=== PATIENT | female | born 1955 | race Caucasian/White ===

== ENCOUNTER 2017-04-02 13:57 | Emergency (ER) | payer SELFPAY ==
[2017-04-02 14:22] LABS: BASOPHILS % (AUTO) 0.5 %; EOSINOPHILS # (AUTO) 0.1 10^3/uL (0.0-0.7); EOSINOPHILS % (AUTO) 1.2 %; HCT - HEMATOCRIT 43.8 % (37.0-47.0); HGB - HEMOGLOBIN 14.9 g/dL (12.0-16.0); LYMPHOCYTES # (AUTO) 1.6 10^3/uL (1.5-3.5); LYMPHOCYTES % (AUTO) 20.7 %; MEAN CORPUSCULAR HEMOGLOBIN 31.4 pg (27.0-31.0); MEAN CORPUSCULAR HGB CONC 34.1 g/dL (32.0-36.0); MEAN CORPUSCULAR VOLUME 92.2 fL (81.0-99.0); MEAN PLATELET VOLUME 8.3 fL (7.9-10.8); MONOCYTES # (AUTO) 0.5 10^3/uL (0.0-1.0); MONOCYTES % (AUTO) 6.5 %; NEUTROPHILS # (AUTO) 5.6 10^3/uL (1.5-6.6); NEUTROPHILS % (AUTO) 71.1 %; RED BLOOD COUNT 4.75 10^6/uL (4.20-5.40); RED CELL DISTRIBUTION WIDTH 13.6 % (12.0-15.0); UNCORRECTED WHITE BLOOD COUNT 7.9 x10^3/uL; WHITE BLOOD COUNT 7.9 x10^3/uL (4.8-10.8)
[2017-04-02 14:36] LABS: ALBUMIN/GLOBULIN RATIO 1.3 (1.0-2.2); BILIRUBIN,TOTAL 1.8 mg/dL (0.2-1.0); CALCIUM 9.4 mg/dL (8.5-10.3); CREATININE 0.7 mg/dL (0.4-1.0); POTASSIUM 3.6 mmol/L (3.5-5.0); TOTAL PROTEIN 7.7 g/dL (6.7-8.2)
--- NOTE | 2017-04-02 15:02 | CT Preliminary Report ---
Exam: CT Head W/O IMPRESSION: Generalized age-related cortical atrophic changes without evidence of acute intracranial abnormality. [facility] SITE ID: [id number]
--- NOTE | 2017-04-02 15:05 | CT Report ---
EXAM: CT HEAD EXAM DATE: 04/02/2017 02:37 PM. CLINICAL HISTORY: Headache, foggy . COMPARISON: None. TECHNIQUE: Multiaxial CT images were obtained from the foramen magnum to the vertex. IV contrast: Non e. Reformats: Coronal. In accordance with CT protocol optimization, one or more of the following dose reduction techniques w ere utilized for this exam: automated exposure control, adjustment of mA and/or KV based on patient s ize, or use of iterative reconstructive technique. FINDINGS: Parenchyma: No intraparenchymal hemorrhage. No evidence of mass, midline shift, or CT findings of acu te infarction. Puentes-white differentiation is distinct. Extraaxial Spaces: Normal for age. No subdural or epidural collections. Ventricles: The ventricles and cortical sulci are enlarged, consistent with age-related tissue loss. Sinuses: Imaged paranasal sinuses, orbits, and mastoids show no significant abnormality. Bones: Unremarkable. Other: Diffuse chronic microangiopathic white matter changes, notably in the basal ganglia and internet application developer al capsules, left more than right.. IMPRESSION: Generalized age-related cortical atrophic changes without evidence of acute intracranial abnormality. [facility] Referring Provider Line: [phone] SITE ID: [id number]
--- NOTE | 2017-04-02 15:12 | ED Physician Documentation ---
PD HPI ALTERED MENTAL STATUS - Stated complaint Stated Complaint: STROKE LIKE SYMPTOMS - Chief complaint Chief Complaint: Neuro - History obtained from History obtained from: Patient, Family, EMS - History of Present Illness Timing - onset: Today Timing - duration: Hours (2) Timing - details: Other (states woke up feeling foggy) Associated symptoms: No: Fever, Headache, Stiff neck, Dyspnea, Cough, NVD, Urinary sx, General weakness, Focal weakness, Seizure activity, Syncope Contributing factors: No: Anticoagulated, Diabetic, Cancer, COPD, New medication , Recent med change, Recent illness, Recent injury, Intoxicated, Substance abuse , Known psych illness, Known dementia Basline status: Alert and oriented X 3 Treatment RISK DEVELOPER: Other (none) - Additional information Additional information: Patient states he has had 2 strokes in the past. The first she had slurred speech and numbness to the right side of the body. The second she is sounds like her right eye would not cross midline, states no cause found, but they thought may have been a stroke. Symptoms lasted for about a month. Does not currently have a doctor. Is not on any medications. Just moved here Review of Systems Ten Systems: 10 systems reviewed and negative Constitutional: denies: Fever, Chills Ears: denies: Ear pain Nose: denies: Rhinorrhea / runny nose, Congestion Throat: denies: Sore throat Respiratory: denies: Cough GI: denies: Abdominal Pain, Nausea, Vomiting, Diarrhea Skin: denies: Rash Musculoskeletal: denies: Neck pain, Back pain Neurologic: reports: Confused (states felt foggy this am). denies: Focal weakness, Numbness, Headache, LOC PD PAST MEDICAL HISTORY - Past Medical History Cardiovascular: Hypertension Respiratory: None Neuro: TIA, Seizure disorder Endocrine/Autoimmune: None GI: None ASSOCIATION EXECUTIVE: None : None Psych: None Musculoskeletal: None Derm: None - Past Surgical History General: Appendectomy /ASSOCIATION EXECUTIVE: section - Present Medications Home Medications: Ambulatory Orders Medication Instructions Recorded Confirmed Aspirin EC [Ecotrin] 325 mg PO DAILY #30 tablet 04/02/17 Cephalexin [Keflex] 500 mg PO Q6H #28 capsule 04/02/17 Metoprolol Tartrate 12.5 mg PO BID #30 tablet 04/02/17 - Allergies Allergies/Adverse Reactions: Allergies Allergy/AdvReac Type Severity Reaction Status Date / Time No Known Drug Allergies Allergy Verified 04/02/17 14:12 - Social History Does the pt smoke?: No Smoking Status: Never smoker ETOH Use: Wine Does the pt have substance abuse?: No PD ED PE NORMAL - Vitals Vital signs reviewed: Yes - General General: Alert and oriented X 3, No acute distress, Well developed/nourished - HEENT HEENT: PERRL, EOMI, Moist mucous membranes - Neck Neck: Supple, no meningeal sign - Cardiac Cardiac: RRR - Respiratory Respiratory: No respiratory distress, Clear bilaterally - Abdomen Abdomen: Soft, Non tender, Non distended - Derm Derm: Warm and dry - Extremities Extremities: No deformity - Neuro Neuro: Alert and oriented X 3, wine merchant 2-12 intact, No motor deficit, No sensory deficit, Normal speech, Other (NIHSS 0@1402) - Psych Psych: Normal mood, Normal affect Results - Vitals Vitals: Vital Signs - 24 hr 04/02/17 04/02/17 14:04 15:57 Temperature 37.5 C Heart Rate 85 74 Respiratory 16 18 Rate Blood Pressure 206/93 H 160/83 H O2 Saturation 99 100 Oxygen O2 Source Room air - EKG (time done) 1511 Rate: Rate (enter#) (72) Rhythm: NSR [place]: Normal Intervals: Normal NE QRS: Normal Ischemia: Normal ST segments - Labs Labs: Laboratory Tests 04/02/17 04/02/17 04/02/17 14:06 14:15 14:15 WBC 7.9 RBC 4.75 Hgb 14.9 Hct 43.8 MCV 92.2 MCH 31.4 H MCHC 34.1 RDW 13.6 Plt Count 209 MPV 8.3 Neut # 5.6 Lymph # 1.6 [place] # 0.5 Eos # 0.1 Baso # 0.0 Absolute Nucleated RBC 0.00 Nucleated RBC % 0.0 Sodium 135 Potassium 3.6 Chloride 100 L Carbon Dioxide 25 Anion Gap 10.0 BUN 9 Creatinine 0.7 Estimated GFR (MDRD) 85 L Glucose 98 POC Whole Bld Glucose 87 Calcium 9.4 Total Bilirubin 1.8 H AST 21 ALT 14 Alkaline Phosphatase 86 Total Protein 7.7 Albumin 4.4 Globulin 3.3 Albumin/Globulin Ratio 1.3 Lipase 20 L Urine Color Urine Clarity Urine pH Ur Specific [place] Urine Protein Urine Glucose (UA) Urine Ketones Urine Occult Blood Urine Nitrite Urine Bilirubin Urine Urobilinogen Ur Leukocyte Esterase Urine RBC Urine WBC Ur Squamous Epith Cells Urine Bacteria Ur Microscopic Review Urine Culture Comments 04/02/17 15:17 WBC RBC Hgb Hct MCV MCH MCHC RDW Plt Count MPV Neut # Lymph # [place] # Eos # Baso # Absolute Nucleated RBC Nucleated RBC % Sodium Potassium Chloride Carbon Dioxide Anion Gap BUN Creatinine Estimated GFR (MDRD) Glucose POC Whole Bld Glucose Calcium Total Bilirubin AST ALT Alkaline Phosphatase Total Protein Albumin Globulin Albumin/Globulin Ratio Lipase Urine Color YELLOW Urine Clarity CLEAR Urine pH 6.0 Ur Specific [place] <=1.005 Urine Protein NEGATIVE Urine Glucose (UA) NEGATIVE Urine Ketones NEGATIVE Urine Occult Blood NEGATIVE Urine Nitrite NEGATIVE Urine Bilirubin NEGATIVE Urine Urobilinogen 0.2 (NORMAL) Ur Leukocyte Esterase SMALL H Urine RBC 0-5 Urine WBC 6-10 H Ur Squamous Epith Cells RARE Squamous Urine Bacteria Rare Ur Microscopic Review INDICATED Urine Culture Comments INDICATED - Rads (name of study) head CT Radiology: Prelim report reviewed, EMP read contemporaneously, See rad report ( Generalized age-related cortical atrophic changes without evidence of acute intracranial abnormality. ) PD MEDICAL DECISION MAKING - ED course Complexity details: reviewed results, re-evaluated patient, considered differential, d/w patient, d/w family ED course: Patient is a 62-year-old female who presents to the emergency department with "feeling foggy" earlier today. This has since resolved. No focal neurological deficits. No facial droop. No slurred speech. No difficulty with ambulation or vision. No acute findings on head CT, EKG, laboratory testing. Will start her on an aspirin daily at home as well as blood pressure medication. [place] clinic [place] to follow-up with. No evidence of TIA or stroke today. Patient also appears to have a UTI and will place on antibiotics for this. Patient and family counseled regarding signs and symptoms for which I believe and urgent re- evaluation would be necessary. Patient with good understanding of and agreement to plan and is comfortable going home at this time This document was made in part using voice recognition software. While efforts are made to proofread this document, sound alike and grammatical errors may occur. Patient also apparently has a seizure disorder, but has not had a seizure for over 20-30 years. Departure - Departure Disposition: 01 Home, Self Care Clinical Impression: Altered mental status Qualifiers: Altered mental status type: transient alteration of awareness Qualified Code(s) : R40.4 - Transient alteration of awareness UTI (urinary tract infection) Qualifiers: Urinary tract infection type: acute cystitis Hematuria presence: without hematuria Qualified Code(s): N30.00 - Acute cystitis without hematuria Hypertension Qualifiers: Hypertension type: unspecified Qualified Code(s): I10 - Essential (primary) hypertension Condition: Good Instructions: ED Confusion, ED UTI Cystitis Female Follow-Up: [facility] [Provider Group] [facility] [Provider Group] [facility] [Provider Group] Prescriptions: Aspirin EC [Ecotrin] 325 mg PO DAILY #30 tablet Cephalexin [Keflex] 500 mg PO Q6H #28 capsule Metoprolol Tartrate 12.5 mg PO BID #30 tablet Comments: It is very important that you obtain your records from your hospitalization in [place]. You need to follow-up with the primary care provider [place] the [place] within the next week. Return here if your symptoms recur or worsen. Your blood pressure was elevated today on check in to the emergency department. This does not mean that you have hypertension, it is a common phenomenon to check into the emergency department and have elevated blood pressure. I recommend that you see your primary care physician within the week to have it rechecked when you're feeling better. Discharge Date/Time: 04/02/17 16:08
[2017-04-02 15:26] LABS: BILIRUBIN,URINE NEGATIVE (NEGATIVE)
[2017-04-02 15:36] LABS: UA w/ MICROSCOPIC CHARGE YES
[2017-04-02 15:44] LABS: UR CULTURE IF IND INDICATED
[2017-04-02 15:59] VITALS: BP 160/83
== END 2017-04-02 16:08 | disposition home or self-care (01) ==
LOC: ED 13:57
DX: R40.4 Transient alteration of awareness (principal); N30.00 Acute cystitis without hematuria; I10 Essential (primary) hypertension; Z86.73 Personal history of transient ischemic attack (TIA), and cerebral infarction without residual deficits; Z79.82 Long term (current) use of aspirin
CPT/HCPCS: 36415; 70450; 80053; 81001; 81003; 83690; 85025; 87086; 93005; 99284